=== PATIENT | female | born 1990 | race African-American/Black ===

== ENCOUNTER 2022-04-06 08:23 | Emergency (ER) | payer MEDICAID, OTHER ==
[~2022-04-06] VITALS: Ht 167.6 cm; Wt 91.0 kg
[2022-04-06] MEDS ORDERED: IPRATROPIUM BROMIDE (0.02%) 0.5MG/2.5ML NEB HHN STA (08:51)
[2022-04-06] MEDS ORDERED: ALBUTEROL (0.083%) 2.5MG/3ML NEB HHN STA (08:51)
[2022-04-06] MEDS ORDERED: ALBU6.7H3 INH (10:20)
[2022-04-06] MEDS ORDERED: P20 MT (10:20)
[2022-04-06] MEDS ORDERED: ACETAMINOPHEN 325MG TABLET PO ONE (10:30)
[2022-04-06] MEDS ORDERED: IBUPROFEN 800MG TABLET PO ONE (10:30)
[2022-04-06 11:23] VITALS: BP 99/78
== END 2022-04-06 11:25 | disposition home or self-care (01) ==
LOC: ER 08:23
DX: J45.901 Unspecified asthma with (acute) exacerbation (principal); J02.9 Acute pharyngitis, unspecified
CPT/HCPCS: 71045; 94640; 99283; Z7610